=== PATIENT | male | born 1980 ===

== ENCOUNTER 2016-12-20 04:09 | Emergency (ER) | payer SELFPAY ==
[2016-12-20 04:20] VITALS: BP 130/90; PULSE 110; RESP 16; TEMP 98.4; O2SAT 98
[2016-12-20] MEDS ORDERED: Tmp-Smz 800 mg-160 mg DS Tab PO STA (04:37)
[2016-12-20] MEDS ORDERED: Bacitracin 500 Units/gm Oint Foilpak UD TOP ONE (04:37)
[2016-12-20] MEDS ORDERED: Tmp-Smz 800 mg-160 mg DS Tab ONE (04:49)
[2016-12-20] MEDS ORDERED: Bacitracin 500 Units/gm Oint Foilpak UD ONE (04:49)
--- NOTE | 2016-12-20 05:11 | C.PDOC ---
History Of Present Illness 36 year old male with PMHx of heroin IVDA presents to the ED with complaints of a swelling lump to the left hand for over three days. Patient states he injected in that hand and the lump developed. Yesterday he popped the lump on his hand and lots of puss came out. He denies any fever or trauma. Time Seen by Provider: 12/20/16 04:24 Chief Complaint (Nursing): Abnormal Skin Integrity History Per: Patient History/Exam Limitations: no limitations Onset/Duration Of Symptoms: Days (3 days ) Current Symptoms Are (Timing): Still Present Quality Of Symptoms: Draining Severity: Mild Recent travel outside of the [place]: No Past Medical History Reviewed: Historical Data, Nursing Documentation, Vital Signs Vital Signs: Last Vital Signs Temp 98.4 F 12/20/16 04:16 Pulse 110 H 12/20/16 04:16 Resp 16 12/20/16 04:16 BP 130/90 12/20/16 04:16 Pulse Ox 98 12/20/16 06:11 - Medical History PMH: HTN Family History: States: No Known Family Hx - Social History Hx Alcohol Use: Yes Hx Substance Use: Yes - Immunization History Hx Tetanus Toxoid Vaccination: No Hx Influenza Vaccination: No Hx Pneumococcal Vaccination: No Review Of Systems Except As Marked, All Systems Reviewed And Found Negative. Constitutional: Negative for: Fever, Chills Cardiovascular: Negative for: Chest Pain, Palpitations Respiratory: Negative for: Cough, Shortness of Breath Gastrointestinal: Negative for: Nausea, Vomiting, Abdominal Pain, Diarrhea Skin: Positive for: Other (swelling lump to left hand ) Physical Exam - Physical Exam Appears: Non-toxic, No Acute Distress Skin: Warm, Dry, Other (3 cm open draining draining wound to dorsal right hand over the 3rd metacarpal, with mild tenderness. No surrounding erythema or fluctuance) Head: Atraumatic, Normacephalic Eye(s): bilateral: Normal Inspection, PERRL, EOMI Oral Mucosa: Moist Neck: Normal ROM, Supple Chest: Symmetrical, No Deformity Cardiovascular: Rhythm Regular, No Friction Rub, No Murmur Respiratory: Normal Breath Sounds, No Rales, No Rhonchi, No Stridor, No Wheezing Gastrointestinal/Abdominal: Soft, No Tenderness, No Distention, No Guarding, No Rebound Extremity: Normal ROM, No Tenderness, Capillary Refill (< 2 sec) Pulses: Left Radial: Normal, Right Radial: Normal Neurological/Psych: Oriented x3, Normal Motor, Normal Sensation Gait: Steady ED Course And Treatment O2 Sat by Pulse Oximetry: 98 (room air ) Pulse Ox Interpretation: Normal Progress Note: Wound cleansed with saline. Medical Decision Making Medical Decision Making: \There is no fluctuance or induration, so need for I&D at this time. PATient was instructed to performed warm compresses 4-5 times per day. Disposition - Disposition Referrals: [facility] at [facility] [Outside] Disposition: HOME/ ROUTINE Disposition Time: 05:05 Condition: GOOD Additional Instructions: Warm compresses applied to the area. Follow up with the medical doctor within 1- 2 days. Return if worsened. Prescriptions: Bacitracin Ointment [Bacitracin] 30 gm TOP BID #1 tube Cephalexin [Keflex] 500 mg PO BID #19 capsule Sulfamethoxazole/Trimethoprim [Bactrim DS 800 mg-160 mg] 1 tab PO BID #14 tab Instructions: Abscess (ED) - Clinical Impression Clinical Impression: Abscess, Cellulitis - Scribe Statement The provider has reviewed the documentation as recorded by the Scribe Katy Garcia All medical record entries made by the Scribe were at my direction and personally dictated by me. I have reviewed the chart and agree that the record accurately reflects my personal performance of the history, physical exam, medical decision making, and the department course for this patient. I have also personally directed, reviewed, and agree with the discharge instructions and disposition.
== END 2016-12-20 05:18 | disposition home or self-care (01) ==
LOC: C.ER 04:09
DX: L02.512 Cutaneous abscess of left hand (principal); L03.114 Cellulitis of left upper limb

== ENCOUNTER 2018-11-06 15:40 | Emergency (ER) | payer SELFPAY ==
[2018-11-06 15:58] VITALS: BP 163/98; PULSE 98; RESP 17; TEMP 99.1; O2SAT 95
[2018-11-06] MEDS ORDERED: Tmp-Smz 800 mg-160 mg DS Tab PO STA (17:05)
--- NOTE | 2018-11-06 17:06 | C.PDOC ---
History Of Present Illness 38 year old male presents to the ED for evaluation of right ankle wound. States he noticed wound 3-4 days ago. Reports he believes he got bit by an insect. Notes that he scratched the area and noticed it became swollen, red and painful. Denies any trauma, chills, discharge from wound, fever, or calf tenderness. Time Seen by Provider: 11/06/18 16:00 Chief Complaint (Nursing): Abnormal Skin Integrity History Per: Patient History/Exam Limitations: no limitations Onset/Duration Of Symptoms: Days Current Symptoms Are (Timing): Still Present Location Of Injury: Right: Ankle (wound ) Quality Of Symptoms: Painful, Swollen, Other (Red) Past Medical History Reviewed: Historical Data, Nursing Documentation, Vital Signs Vital Signs: Last Vital Signs Temp 99.1 F 11/06/18 15:54 Pulse 98 H 11/06/18 15:54 Resp 17 11/06/18 15:54 BP 163/98 H 11/06/18 15:54 Pulse Ox 95 11/06/18 15:54 Primary Care Provider: FAMILY PROVIDER,NO - Medical History PMH: HTN Surgical History: No Surg Hx Family History: States: No Known Family Hx - Social History Hx Alcohol Use: Yes Hx Substance Use: No - Immunization History Hx Tetanus Toxoid Vaccination: No Hx Influenza Vaccination: No Hx Pneumococcal Vaccination: No Review Of Systems Except As Marked, All Systems Reviewed And Found Negative. Constitutional: Negative for: Fever, Chills Musculoskeletal: Negative for: Other (calf tenderness ) Skin: Positive for: Other (wound to right ankle ) Physical Exam - Physical Exam Appears: Non-toxic, No Acute Distress, Other (comfortable ) Skin: Warm, Dry, No Rash Head: Normacephalic Eye(s): bilateral: PERRL, EOMI Oral Mucosa: Moist Neck: Supple Chest: Symmetrical Cardiovascular: Rhythm Regular Respiratory: No Rales, No Rhonchi, No Wheezing, Other (good air movement, CTA B/L ) Extremity: Normal ROM, Tenderness (mild tenderness to palpation to ulcer in right lateral ankle ), No Calf Tenderness, No Deformity, Other (0.5cm ulcer to right lateral ankle with 2cm of mild surrounding erythema, no fluctuance, no induration ) Neurological/Psych: Oriented x3, Normal Speech Gait: Steady ED Course And Treatment O2 Sat by Pulse Oximetry: 95 (RA) Pulse Ox Interpretation: Normal Progress Note: Patient treated with Keflex, Motrin and Bactrin. ED RN circled area of erythema using skin marker. Patient instructed to follow up. Disposition Counseled Patient/Family Regarding: Diagnosis, Need For Followup, Rx Given - Disposition Referrals: [facility] at [facility] [Outside] Disposition: HOME/ ROUTINE Disposition Time: 17:10 Condition: STABLE Additional Instructions: FOLLOW UP WITH MEDICAL CLINIC IN 1-2 DAYS USE ANTIBIOTICS UNTIL FINISHED RETURN TO ER IF SYMPTOMS WORSEN Prescriptions: Cephalexin [Keflex] 500 mg PO BID #14 capsule Ibuprofen [Motrin Tab] 600 mg PO Q6 PRN #30 tab PRN Reason: fever/pain Sulfamethoxazole/Trimethoprim [Bactrim DS 800 mg-160 mg] 1 tab PO BID #14 tab Instructions: Cellulitis (Skin Infection), Adult (DC) Forms: [employer] (Romansh) Print Language: KOREAN - Clinical Impression Clinical Impression: Cellulitis of right lower leg - Scribe Statement The provider has reviewed the documentation as recorded by the Mya Haley All medical record entries made by the Mya were at my direction and personally dictated by me. I have reviewed the chart and agree that the record accurately reflects my personal performance of the history, physical exam, medical decision making, and the department course for this patient. I have also personally directed, reviewed, and agree with the discharge instructions and disposition.
[2018-11-06] MEDS ORDERED: Tmp-Smz 800 mg-160 mg DS Tab ONE (17:15)
== END 2018-11-06 17:15 | disposition home or self-care (01) ==
LOC: C.ER 15:40
DX: L03.115 Cellulitis of right lower limb (principal)